=== PATIENT | male | born 1935 | race Caucasian/White ===

== ENCOUNTER 2020-08-26 10:57 | Outpatient (CLI) | payer MEDICARE, BC ==
[2020-08-26] MEDS ORDERED: Iopamidol-370 76% 500 ML 1 ML ONE (12:10)
== END 2020-08-26 10:58 | disposition home or self-care (01) ==
LOC: BICCT 10:57
PROVIDERS: ATTEND Urology
DX: N20.1 Calculus of ureter (principal); N28.1 Cyst of kidney, acquired; K44.9 Diaphragmatic hernia without obstruction or gangrene; N40.0 Benign prostatic hyperplasia without lower urinary tract symptoms; K86.2 Cyst of pancreas
CPT/HCPCS: 74178; 82565; Q9967